=== PATIENT | male | born 1955 | race Caucasian/White ===

== ENCOUNTER 2016-06-24 14:34 | Emergency (ER) | payer SELFPAY ==
[~2016-06-24] VITALS: Ht 177.8 cm; Wt 83.0 kg
[~2016-06-24 14:34] MED LIST: LORT5TAB PO; OCUF0.3D EACH EYE; SUBOXONE PO; TRAZ100T50 PO
[2016-06-24 14:39] VITALS: BP 150/84; PULSE 62; RESP 16; TEMP 98; O2SAT 97
[2016-06-24] MEDS ORDERED: TRAZ50TA12 PO (14:52)
[2016-06-24] MEDS ORDERED: FISHCAP4 PO (14:52)
[2016-06-24] MEDS ORDERED: TAMS0.4C4 PO (14:52)
[2016-06-24] MEDS ORDERED: KETOROLAC TROMETHAMINE 60 MG/2 ML (IM) VIAL IM ONE (15:00)
[2016-06-24] MEDS ORDERED: CYCL1TAB29 PO (15:04)
[2016-06-24] MEDS ORDERED: HYDR-3516 PO (15:04)
--- NOTE | 2016-06-24 15:05 | PD ---
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 States he was shaken/dazed without loss of consciousness. Denies any scalp pain or neck tenderness. Complaints of left lower back pain. Using warm heat without resolution. Denies any loss of urine or bowel. Denies any gait abnormalities. PFSH Past Medical History Arthritis: Yes (BACK, KNEES, HANDS) Asthma: Yes (CHILDHOOD) Genitourinary: Yes (ENLARGED PROSTATE) Musculoskeletal: Yes (REPEAT RT SHOULDER INJURY) ?: Not Past Surgical History Surgical History: No Previous Surgery Social History Alcohol Use: No Tobacco Use: No Substance Use: No Allergies-Medications (Allergen,Severity, Reaction): Coded Allergies: No Known Allergies (Verified , 06/24/16) Reported Meds & Prescriptions Reported Meds & Active Scripts Active Reported Fish Oil + D3 (Fish Oil-Cholecalciferol) 1,200-1,000 Mg-Unit Cap 1 Cap PO DAILY Tamsulosin (Tamsulosin HCl) 0.4 Mg Cap 0.4 Mg PO HS Trazodone (Trazodone HCl) 50 Mg Tab 50 Mg PO HS Review of Systems General / Constitutional: No: Fever Eyes: No: Visual changes HENT: No: Headaches Cardiovascular: No: Chest Pain or Discomfort Respiratory: No: Shortness of Breath Gastrointestinal: No: Abdominal Pain Genitourinary: No: Dysuria Musculoskeletal: No: Pain Skin: No Rash Neurologic: No: Weakness Psychiatric: No: Depression Endocrine: No: Polydipsia Hematologic/Lymphatic: No: Easy Bruising Physical Exam Narrative GENERAL: Well-nourished, well-developed patient. SKIN: Warm and dry. HEAD: Normocephalic. Examination of the left scalp reveals no hematoma laceration abrasion or contusion EYES: No scleral icterus. No injection or drainage. NECK: Supple, trachea midline. No JVD or lymphadenopathy. CARDIOVASCULAR: Regular rate and rhythm without murmurs, gallops, or rubs. RESPIRATORY: Breath sounds equal bilaterally. No accessory muscle use. GASTROINTESTINAL: Abdomen soft, non-tender, nondistended. MUSCULOSKELETAL: No cyanosis, or edema. BACK: Nontender without obvious deformity. No CVA tenderness. Examination the cervical spine is no midline tenderness without paraspinous pain Examination of the lumbar sacral spine reveals no midline tenderness with left- sided paraspinous pain negative straight leg raise Data Data Last Documented VS Vital Signs Date Time Temp Pulse Resp B/P Pulse Ox O2 Delivery O2 Flow Rate FiO2 06/24/16 14:52 15 06/24/16 14:39 98.0 62 150/84 97 MDM Medical Decision Making Medical Screen Exam Complete: Yes Emergency Medical Condition: Yes Differential Diagnosis Lumbar musculoskeletal pain, lumbar fracture, concussion, cervical degenerative disc disease, degenerative disc disease Narrative Course Assessment and plan discussed with patient at bedside. Diagnosis Primary Impression: Lumbar muscle pain Patient Instructions: General Instructions Additional Instructions: Encouraged warm heat gentle stretching and strengthening and massage. Regular NSAID use. Pain medication and muscle relaxer as needed. Follow-up with PCP symptoms do not improve to discuss physical therapy Med/Other Pt SpecificInfo: Prescription(s) given Scripts Hydrocodone-Acetaminophen 5-325 mg Tab1 Tab PO Q6H PRN (PAIN) #20 TAB Ref 0 Prov:Isidoro Friedman MD 06/24/16 Cyclobenzaprine (Flexeril)10 Mg Tab10 Mg PO TID #90 TAB Ref 0 Prov:Isidoro Friedman MD 06/24/16 Disposition: 01 DISCHARGE HOME Condition: Good Isidoro Friedman MD Jun 24, 2016 15:05
== END 2016-06-24 15:20 | disposition home or self-care (01) ==
LOC: PHED 14:34
DX: N40.0 Benign prostatic hyperplasia without lower urinary tract symptoms (principal); M19.90 Unspecified osteoarthritis, unspecified site; M79.1 Myalgia; W20.8XXA Other cause of strike by thrown, projected or falling object, initial encounter; Y93.89 Activity, other specified; Y92.9 Unspecified place or not applicable; Y99.8 Other external cause status
CPT/HCPCS: 96372; 99283; J1885